=== PATIENT | female | born 1955 | race Caucasian/White ===

== ENCOUNTER 2020-08-04 22:11 | Emergency (ER) | payer OTHER ==
[2020-08-04 22:20] VITALS: BP 153/93; PULSE 85; TEMP 98.5; BMI 28.3
[2020-08-04] MEDS ORDERED: DIPHTH,PERTUSS(ACELL),TET 0.5 ML DISP.SYRIN IM ONE ×2 (23:11→23:20)
== END 2020-08-05 00:35 | disposition left against medical advice (07) ==
LOC: JER 22:11
PROC: 3E0234Z Introduction of Serum, Toxoid and Vaccine into Muscle, Percutaneous Approach (ICD-10-PCS; principal; 2020-08-04)
DX: S01.81XA Laceration without foreign body of other part of head, initial encounter (principal)
CPT/HCPCS: 90715; 99284-25

== ENCOUNTER 2022-06-19 17:10 | Emergency (ER) | payer OTHER ==
[2022-06-19 17:18] VITALS: BP 131/68; PULSE 71; RESP 18; TEMP 98.2; BMI 27.4
[2022-06-19] MEDS ORDERED: ACETAMINOPHEN 500 MG TABLET (FP) PO ONE (17:46)
[2022-06-19] MEDS ORDERED: ACETAMINOPHEN 500 MG TABLET (FP) ONE (17:47)
[2022-06-19 20:21] LABS: THROAT:GRP A STREP DETECTED (NOTDETECTED)
== END 2022-06-19 19:31 | disposition home or self-care (01) ==
LOC: JERFT 17:10
DX: J02.0 Streptococcal pharyngitis (principal); Z20.822 Contact with and (suspected) exposure to COVID-19
CPT/HCPCS: 0241U-QW; 87651; 99283-25